=== PATIENT | female | born 1965 | race Native Hawaiian/Other Pacific Islander ===

== ENCOUNTER 2019-06-27 08:19 | Day surgery (SDC) | payer OTHER ==
[~2019-06-27] VITALS: Ht 147.3 cm; Wt 43.1 kg
[2019-06-27] MEDS ORDERED: fentaNYL 0.05 MG/ML VIAL ONE (10:17)
[2019-06-27] MEDS ORDERED: LIDOCAINE 2% 100 MG/5 ML UJET TP ONE (10:17)
[2019-06-27] MEDS ORDERED: MIDAZOLAM 2 MG/2 ML VIAL ONE (10:39)
== END 2019-06-27 11:33 | disposition home or self-care (01) ==
LOC: MDS 08:19 → MMU 08:21 → MDS 11:33
PROVIDERS: ATTEND Internal Medicine Gastroenterology
DX: Z12.11 Encounter for screening for malignant neoplasm of colon (principal); D12.5 Benign neoplasm of sigmoid colon; E11.9 Type 2 diabetes mellitus without complications; M81.0 Age-related osteoporosis without current pathological fracture; Z86.010 Personal history of colon polyps; Z88.0 Allergy status to penicillin; Z79.84 Long term (current) use of oral hypoglycemic drugs; Z79.899 Other long term (current) drug therapy; Z98.890 Other specified postprocedural states; Z88.8 Allergy status to other drugs, medicaments and biological substances
CPT/HCPCS: 45385; J2250; J3010